=== PATIENT | male | born 1985 | race Two or more races ===

== ENCOUNTER 2020-09-03 12:56 | Emergency (ER) | payer MEDICAID, OTHER ==
[~2020-09-03] VITALS: Ht 175.3 cm; Wt 90.7 kg
[2020-09-03 12:58] VITALS: BP 131/85
[2020-09-03] MEDS ORDERED: LIDOCAINE 1% HCL (LOCAL ANESTH.) INJ 20ML MDV IJ ONE (15:45)
== END 2020-09-03 16:00 | disposition home or self-care (01) ==
LOC: ER 12:56
DX: S01.81XA Laceration without foreign body of other part of head, initial encounter (principal); W22.8XXA Striking against or struck by other objects, initial encounter; Y93.89 Activity, other specified; Y92.89 Other specified places as the place of occurrence of the external cause; Y99.8 Other external cause status
CPT/HCPCS: 12011; 70450; 99284; J2001